=== PATIENT | male | born 1960 | race Caucasian/White ===

== ENCOUNTER 2024-08-07 10:03 | Day surgery (SDC) | payer OTHER, SELFPAY ==
--- NOTE | 2024-08-06 19:01 | W.PM.DSUDISC ---
Date of service: 08/07/24 Discharge Plan Disposition Patient Disposition: Home Condition: Good Discharge Details Reason For Visit: Ventral hernia Attending Provider: Alex Cox Primary Care Provider: Nahun James Home Meds and New Rx's Prescriptions: New tramadol 50 mg tablet 50 mg PO Q8H PRNQty: 12 0RF Rx Instructions: take one tablet by mouth up to every 8 hours if needed for severe pain Continued aspirin 81 mg tablet,delayed release (DR/EC) 81 mg PO DAILY acetaminophen [Acetaminophen Extra Strength] 500 mg tablet 500 mg PO Q6H PRN multivitamin Tablet 1 tab PO DAILY Discharge Instructions Instructions: Abdominal Hernia Repair, Laparoscopic Surgery Additional Instructions: Hao, it was great seeing you today and I hope you make a quick recovery from todays operation. Everything went very smoothly. As expected, you did have 2 hernia defects. I was able to get everything reduced out of those spaces and close them over with a large mesh that will prevent anything from getting back through the hernia defects. I suspect it will serve you well for the years to come. I performed nerve blocks on each side that should provide some pain relief in the days to come. Ice packs, tylenol and ibuprofen will also be helpful. And I did place an order for a prescription if you need it. I look forward to seeing you in the office on the , but if you need anything in the meantime, please call. 1. Resume all of your regular medications. 2. Alternate heating pads and ice packs over the areas of pain. 3. Alternate over the counter tylenol and ibuprofen every 6 hours for two days, then use as needed. Use the prescription for tramadol if needed for more severe pain. 4. Leave bandages in place for 24 hours, then remove. 5. Shower with warm soapy water. Pat dry. Use a bandaids if needed to protect your clothing. 6. No soaking or tub baths until I see you in the office. 7. No heavy lifting until I see you in the office. 8. Call the office (or go directly to the emergency room after hours) if you notice any of the following: Develop chills (warm to touch), or if you have a thermometer and your temperature is above 101 Difficulty breathing or difficultly swallowing Persistent vomiting Any bleeding ? exceeding one tablespoon 9. Call your physician if the site where your intravenous was started becomes red, swollen, painful, and warm to touch. Referrals: Alex Cox MD [ [facility] STAFF PHYSICIAN] - 08/20/24 9:30 am Activity:: no heavy lifting Remove Dressings/Wound Care:: 24 hours Shower/Bathe:: 24 hours Diet:: As Tolerated Discharge Orders Discharge Orders: Discharge Order (Routine); Ordered 08/06/24 Ordered By: Alex Cox DS: Diagnosis Discharge Diagnosis (1) Ventral hernia: Status: Acute Asessment and Plan: Post operative follow up
--- NOTE | 2024-08-06 19:05 | W.PM.OP ---
Operative Note Operative Note PRE-OP DIAGNOSIS: Recurrent ventral hernia POST-OP DIAGNOSIS: same PROCEDURE: Laparoscopic ventral hernia repair with mesh SURGEON: Alex Cox ANESTHESIA TYPE: General LMA/ETT Refer to Anesthesia Record ESTIMATED BLOOD LOSS: 50 PATHOLOGY: none sent COMPLICATIONS: None Patient was transported to: PACU Patient's condition: stable Implants: 8 x [address] mesh Indications: Hao is a 63 year old man with a symptomatic recurrent ventral hernia Findings: 2 midline ventral hernia defects, superior to the umbilicus. Larger defect is approximately 8 cm top to bottom by 5 cm left to right, small defect is approximately 2 x 2 cm Procedure Description: I met with Hao and his in the preoperative area, and we reviewed the plan for surgery today. There were no significant interval changes with regards to the history or physical. Next, we brought Hao back to the operating room. He was assisted onto the OR table and padded and supported appropriately. Next, general endotracheal anesthesia was induced. A Vega urinary catheter was inserted in the usual fashion using aseptic technique. I then prepped and draped the anterior abdominal wall. I anesthetized the skin over the left upper quadrant and area of Wen's point made a small incision. I then gained entry into the peritoneal cavity with a 5 mm optical viewing port under the direct vision of the scope. The peritoneum was insufflated, and quickly surveyed. There were just a few adhesions around the periphery that were quite filmy, and an obvious hernia defect just above the level of the umbilicus. Another 5 mm port was placed in the left lateral abdomen, and a 5 mm LigaSure device was used to divide some of the previously mentioned adhesions. There was some greater omentum stuck within the hernia. This was gently dissected free and divided. Once the hernia sac was emptied of its contents, I began dissecting the sac proper away from the fascial edge. As this dissection was extended a bit cephalad, it was apparent there was another defect in the more cephalad position. This is under his previous hernia repair incision, and is difficult to say exactly how this was closed. There was some omental fat within the sac as well. That was also reduced free as the sac was mobilized and divided. This dissection was continued up towards the falciform ligament, which was partially divided to gain an adequate landing zone for the mesh. Once this was all complete, another port was placed in the right mid abdomen. This was 12 mm port. It was placed under the vision of the laparoscope in an effort to minimize any potential injury. Once this was in place, the hernia defects were measured against the anterior abdominal wall. In order to cover both defects, a 10 inch mesh was required. This was brought up onto the operative field. Next, I performed bilateral laparoscopic tap blocks. Once that was complete, I delivered the 8 x [address] mesh into the peritoneal cavity by way of the 12 mm port. It was unrolled, and appropriately oriented. The echo positioning system was then used to deliver it up against the underside of the anterior abdominal wall. The reliatack articulating device was then used to affix the 4 cardinal points of the mesh. With excellent coverage of the hernia defects, the mesh was permanently affixed in place with a RelyyT tack device taking great care to ensure that the margin was all appropriately fixed to minimize the likelihood of anything migrating around the edge. The echo positioning system was then removed, and the mesh was examined 1 last time. Everything looked great excellent. The 12 mm port on the right side was then closed with the [employer] wound closure device and 0 Vicryl suture. The other 5 mm ports were then removed, the sites were irrigated, and the skin was closed with interrupted subcuticular stitches. Bandages were applied, the patient was allowed to awaken from the anesthetic, extubated, and transferred to the recovery unit. Date of Procedure: 08/07/24
[2024-08-07] VITALS (39 sets, daily range): BP systolic 140–174; BP diastolic 88–122; PULSE 60–73; RESP 11–18; TEMP 36.2–36.7; O2SAT 92–100; BMI 31.3
[2024-08-07] MEDS: Celecoxib 200 MG CAP PO (11:11)
[2024-08-07] MEDS: Gabapentin 300 MG CAP 600 MG PO (11:11)
[2024-08-07] MEDS: Acetaminophen 500 MG TAB 1000 MG PO (11:12)
[2024-08-07] MEDS: Lactated Ringers 1,000 ML 80 ML IV (11:14)
--- NOTE | 2024-08-07 12:08 | ANES.PREOP_ITS ---
General Info Date of Service Date Performed: 08/07/24 Height: 5 ft 10 in Weight: 99 kg Body Mass Index (BMI): 31.3 Surgical Procedure: Operation Date: 08/07/24 13:10 Proposed Procedure Side Surgeon p Hernia Umbilical Laparoscopic w/Mesh Alex Cox MD Meds Allergies and Home Medications Allergies Allergy/AdvReac Type Severity Reaction Status Date / Time No Known Allergies Allergy Verified 08/07/24 11:06 Home Medication ?Medication ?Instructions ?Recorded acetaminophen 500 mg tablet 500 mg PO Q6H PRN 07/23/24 (Acetaminophen Extra Strength) aspirin 81 mg tablet,delayed 81 mg PO DAILY 07/23/24 release multivitamin 1 tab PO DAILY 07/23/24 Current Visit Medications: Current Medications Generic Name Dose Route Start Last Admin Trade Name Freq PRN Reason Stop Dose Admin Acetaminophen 1,000 mg 08/07/24 06:00 08/07/24 11:12 Acetaminophen 500 Mg Tab PO 08/07/24 23:59 1,000 mg PREOP NESSA Administration Celecoxib 200 mg 08/07/24 06:00 08/07/24 11:11 Celecoxib 200 Mg Cap PO 08/07/24 23:59 200 mg PREOP NESSA Administration Gabapentin 600 mg 08/07/24 06:00 08/07/24 11:11 Gabapentin 300 Mg Cap PO 08/07/24 23:59 600 mg PREOP NESSA Administration Hydromorphone HCl 0.2 mg 08/06/24 19:06 Hydromorphone 2 Mg/Ml Syr IVP 09/05/24 19:05 Q1H PRN PRN Ringer's Solution 1,000 mls @ 80 mls/hr 08/07/24 06:00 08/07/24 11:14 IV 08/07/24 23:59 80 mls/hr INFUSION NESSA Administration Cefazolin Sodium/Dextrose 2 gm in 50 mls @ 100 mls/hr 08/07/24 06:00 Ancef Duplex IVPB 08/07/24 23:59 PREOP NESSA IV Miscellaneous Supplies 1 each 08/07/24 06:00 Iv Access IV 08/07/24 23:59 DIRECTED NESSA Sodium Chloride 0 ml 08/07/24 06:00 Normal Saline Flush 10 Ml Syr IV 08/07/24 23:59 PRN PRN Sodium Chloride 0 ml 08/07/24 06:00 Normal Saline 10 Ml Vial IJ 08/07/24 23:59 DIRECTED PRN Sterile Water 0 ml 08/07/24 06:00 Water,Injection,Sterile 10 Ml Vial IJ 08/07/24 23:59 DIRECTED PRN Tramadol HCl 50 mg 08/06/24 19:06 Tramadol 50 Mg Tab PO 09/05/24 19:05 Q6H PRN PRN Pain PFSH Active Problems Active Problems: Problem Status Onset Code Ventral hernia Acute K43.9 Scientology or spiritual beliefs affecting medical care Acute Z53.1 Surgical History Surgical History History of left inguinal hernia repair (~2011) History of ventral hernia repair (~2011) Tobacco Smoking/Tobacco Use Status: Never Alcohol Alcohol Intake: current Alcohol intake frequency: holidays/special occasions only Substance Use Substance use: Never Substance use type: does not use Vital Signs and Lab Results Vital Signs Most Recent Vital Signs in EMR: Most Recent Vital Signs Temp Pulse Resp BP Pulse Ox 36.4 C L 60 14 140/103 H 100 08/07/24 11:00 08/07/24 11:00 08/07/24 11:00 08/07/24 11:00 08/07/24 11:00 Lab Results Blood Type / Crossmatch: No Data to Display Complete Blood Count: No Data to Display Complete Metabolic Panel: No Data to Display Liver Function Panel: No Data to Display Coagulation Panel: No Data to Display Cardiac Panel: No Data to Display Arterial Blood Gas: No Data to Display Venous Blood Gas: No Data to Display Pancreas Panel: No Data to Display Thyroid Panel: No Data to Display Infectious Disease: No Data to Display Blood Cultures: No Data to Display Toxicology Panel: No Data to Display Anesthesia Assessment and Plan Anesthesia History Personal History: No History of Anesthesia Complications Family History: No Family History of Anesthesia Complications Exercise Tolerance Exercise Tolerance: Metabolic Equivalents>4 Cardiac & Pulmonary Exam Cardiac Exam: Normal S1/S2 Heart Sounds Pulmonary Exam: Clear Bilateral Breath Sounds Implantable Cardiac Device Does patient have a Pacemaker or an ICD?: No Airway Exam Known Difficult Airway: No Mallampati Class: 4 Mouth Opening: Narrow (< 3cm) Thyromental Distance: Greater than 3 cm Neck Range of Motion: Full ROM Neck Circumference: Normal Teeth Condition: Normal Dentition ASA Classification ASA Score: ASA 2 Emergency Case?: No NPO Status NPO Status: NPO Clears >2 hours, Solids >8 hours Anesthesia Plan Resuscitation Status: Full Code Anesthesia Technique: General Anesthesia Airway Planned: Endotracheal Tube Monitors Used: Standard Monitors Preoperative Comments:: 63 yo male Buddhism for hernia repair. Sig PMHx: never smoker, occ EtOH. While unlikely, he and his SO understand the refusal of blood products can lead to in the event of severe bleeding. They understands this. He does not want blood products.
[2024-08-07] MEDS: Normal Saline Flush 10 ML SYR IV (13:28)
[2024-08-07] MEDS: ceFAZolin 2 GM/50 ML BAG IVPB (13:31)
[2024-08-07] MEDS: Bupivacaine LIPOSOME/PF 133 MG/10 ML VIAL IJ (13:55)
[2024-08-07] MEDS: Bupivacaine 0.5% Pres-Free 30 ML VIAL (13:55)
[2024-08-07] MEDS: HYDROmorphone 1 MG/ML SYR IVP ×3 (15:39→16:18)
[2024-08-07] MEDS: fentaNYL 100 MCG/2 ML VIAL IVP ×2 (15:58→16:07)
--- NOTE | 2024-08-07 16:02 | W.ANESPOSTOP ---
Postoperative Evaluation Date, Time and Location Date Performed: 08/07/24 Time Performed: 16:02 Patient Location: PACU Vital Signs Most Recent Imported Vital Signs: Most Recent Vital Signs Temp Pulse Resp BP Pulse Ox 36.5 C 66 15 167/113 H 92 08/07/24 16:01 08/07/24 16:01 08/07/24 16:01 08/07/24 16:01 08/07/24 16:01 Pain Score Most Recent Pain Score: Most Recent Pain Score Pain Level 5 08/07/24 15:46 Assessment Mental Status: Arousable with meaningful communication Airway and Respiratory Function: Patent airway with normal (patient baseline) respiratory exam Cardiovascular Function: Hemodynamically Stable Hydration Status: Adequately Hydrated Nausea & Vomiting: No Nausea or Vomiting Pain: Pain is Moderate or Severe Postoperative Pain Management: Pain being addressed with medication Peripheral Nerve Block: Patient did not receive a nerve block
== END 2024-08-07 17:40 | disposition home or self-care (01) ==
LOC: SUR 10:04
PROVIDERS: PCP Family Medicine; Visit Provider Surgery
PROC: (CPT 49650; principal; 2024-08-07 13:00)
DX: K43.9 Ventral hernia without obstruction or gangrene (principal)
CPT/HCPCS: 49617; C1781; J0665; J0666; J0690; J1100; J1171; J2003; J2405; J2704; J3010